=== PATIENT | male | born 1970 | race Two or more races ===

== ENCOUNTER 2016-10-19 08:34 | Inpatient (IN) | payer MEDICAID ==
[~2016-10-19] VITALS: Ht 177.8 cm; Wt 90.7 kg
[~2016-10-19 08:34] MED LIST: COLACE100 MG ORAL; DILANTIN100 MG PO; IBUPROFEN600 MG ORAL; KEFLEX500 MG ORAL; LIBRIUM25 MG ORAL; NKM; PROTONIX40 MG ORAL; SILVADENE CREAM50 GM TOP; UNOBMED
[2016-10-19 08:40] VITALS: BP_SYST 135; BP_SYST 139; BP_DIAS 105; BP_DIAS 84
[2016-10-19] MEDS ORDERED: LORazepam Inj 2mg/ml 1ml ONE (08:55)
[2016-10-19] MEDS ORDERED: LORazepam Inj 2mg/ml 1ml IV ONE (09:00)
[2016-10-19 09:36] LABS: ACETAMINOPHEN < 10 ug/mL (10-30); ALANINE AMINOTRANSFERASE 106 U/L (3-41); ALBUMIN/GLOBULIN RATIO 1.3 (1.0-2.7); ALCOHOL < 10 mg/dL; ANION GAP 31 (5-15); ASPARTATE AMINO TRANSFERASE 263 U/L (5-40); CALCIUM 9.1 mg/dL (8.6-10.2); CARBON DIOXIDE 12 mEQ/L (20-30); CHLORIDE 97 mEQ/L (98-107); GLOMERULAR FILTRATION RATE > 60 mL/min (>60); HEMOLYSIS 12; POTASSIUM 3.5 mEQ/L (3.4-4.9); SODIUM 140 mEQ/L (135-145); VALPROIC ACID < 3 ug/mL (50-100)
[2016-10-19 09:40] LABS: BASOPHILS % (AUTO) 1.2 % (0.0-2.0); EOSINOPHILS % (AUTO) 0.9 % (0.0-3.0); LYMPHOCYTES % (AUTO) 27.3 % (20.0-45.0); MEAN CORPUSCULAR HEMOGLOBIN 31.2 PG (27.0-31.0); MEAN CORPUSCULAR HGB CONC 32.1 G/DL (32.0-36.0); MEAN CORPUSCULAR VOLUME 97 FL (80-99); MEAN PLATELET VOLUME 7.1 FL (6.5-10.1); MONOCYTES % (AUTO) 6.8 % (1.0-10.0); NEUTROPHILS % (AUTO) 63.8 % (45.0-75.0); PLATELET COUNT 108 K/UL (150-450); RED BLOOD COUNT 4.81 M/UL (4.70-6.10); RED CELL DISTRIBUTION WIDTH 12.7 % (11.6-14.8); WHITE BLOOD COUNT 5.1 K/UL (4.8-10.8)
--- NOTE | 2016-10-19 09:44 | Emergency Room Report ---
History of Present Illness General Chief Complaint: Seizure Source: Patient, EMS Present Illness HPI 46YOM [address]IB[address]S from [address] after witnessed seizure. Not given meds by EMS. Patient denies history of epilepsy Daily ETOH Last drink was yesterday Has bottle of keflex with him Old laceration with suture to left forehead Allergies: Coded Allergies: No Known Allergies (Unverified , 07/08/12) UNABLE TO ASSESS (Unverified , 08/02/13) POOR HISOTRIAN Patient History Past Medical History: none Past Surgical History: none Pertinent Family History: none Social History: Reports: alcohol use Nursing Documentation-[facility] Past Medical History: No Stated History Hx Seizures: Yes Review of Systems All Other Systems: negative except mentioned in HPI Physical Exam Vital Signs Date Time Temp Pulse Resp B/P Pulse Ox O2 Delivery O2 Flow Rate FiO2 10/19/16 08:32 97.9 104 18 144/82 96 Room Air Sp02 EP Interpretation: reviewed, normal General Appearance: normal inspection, well appearing, no apparent distress, alert, GCS 15, non-toxic, other - Disheveled, dirty Head: normocephalic, other - Multiple old abrasions, hematoma to head. Small lac to left forehead with suture in place Eyes: bilateral eye EOMI, bilateral eye PERRL ENT: normal ENT inspection, hearing grossly normal, normal voice Neck: normal inspection, full range of motion, supple, no bony tend Respiratory: normal inspection, lungs clear, normal breath sounds, no respiratory distress, no retraction, no wheezing Cardiovascular #1: regular rate, rhythm, no edema Gastrointestinal: normal inspection, normal bowel sounds, non tender, soft, no guarding, no hernia Genitourinary: no CVA tenderness Musculoskeletal: normal inspection, back normal, normal range of motion, April' s Sign negative Neurologic: normal inspection, alert, oriented x3, responsive, 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 Afebrile Mild tremors, fasciculations CT head: no acute trauma. Atrophy Labs: H&H stable. No major metabolic derangement. ETOH level 0. UTox negative ECG is NSR. No ischemia Was given IV ativan for withdrawal symptoms but no additional seizures in ED Endorsed to Dr Vaca for tele admit at 953am EKG Diagnostic Results Rate: normal Rhythm: NSR ST Segments: no acute changes ASA given to the pt in ED: No Rhythm Strip Diag. Results EP Interpretation: yes Rate: 75 Rhythm: NSR, no PVC's, no ectopy Last Vital Signs Date Time Temp Pulse Resp B/P Pulse Ox O2 Delivery O2 Flow Rate FiO2 10/19/16 08:40 84 19 Room Air 10/19/16 08:40 98.1 135/105 93 Status: improved Disposition: ADMITTED INPATIENT Condition: Serious Referrals: NOT CHOSEN JACKIE/,REFERRING (PCP) RADHA MCCONNELL M.D. Oct 19, 2016 09:43
[2016-10-19 10:30] VITALS: BP 152/86
[2016-10-19] MEDS ORDERED: Milk of Magnesia 30ml Ud ORAL PRN (12:00)
[2016-10-19] MEDS ORDERED: Acetaminophen 650 MG SUPP RECTAL PRN ×2 (12:00)
[2016-10-19 12:05] VITALS: BP 162/96
[2016-10-19] MEDS ORDERED: Thiamine HCl 100 MG, Folic Acid 1 MG, Magnesium Sulfate 2,000 MG, Multivitamin - 12 Inj... IV SCH ×5 (14:00)
[2016-10-19] MEDS: LORazepam Inj 2mg/ml 1ml IV SCH ×3 (14:04→23:43)
[2016-10-19 16:00] VITALS: BP 148/100
[2016-10-19] MEDS: D5NS w/KCl 40mEq 1000ml 1,000 ML IV SCH ×2 (16:45→23:42)
[2016-10-19] MEDS ORDERED: NS 275ml ONE (17:12)
[2016-10-19] MEDS ORDERED: Tubing IV Secondary IV ONE (17:12)
[2016-10-19 20:00] VITALS: BP 152/94
[2016-10-19] MEDS: Heparin 5000 units/ml inj SUBQ SCH (21:00)
--- NOTE | 2016-10-19 23:02 | History and Physical Report ---
DATE OF ADMISSION: 10/19/2016 CHIEF COMPLAINT AND REASON FOR HOSPITALIZATION: The patient presents with seizures and alcohol withdrawal. HISTORY OF PRESENT ILLNESS: The patient is a poor historian, came with apparently witnessed seizure and was very tremulous, admits to alcoholism and is in alcohol withdrawal syndrome. He is a poor historian. PAST MEDICAL HISTORY: He has had seizures apparently in the past and head injuries in the past. PAST SURGICAL HISTORY: There is surgery on the right leg apparently for fracture and there are scalp incisions. It is not clear if he had intracerebral bleeding or just scalp injury. HABITS: He is a heavy alcohol user. He smokes intermittently. Denies drugs. SYSTEM REVIEW: Other than the above, negative, but the patient is an inaccurate historian. PHYSICAL EXAMINATION: GENERAL: The patient is seen in the emergency room. He is lying in bed, alert, very tremulous, but responsive. VITAL SIGNS: Temperature 98.1, respirations 19, pulse 84, blood pressure 139/84, and pulse oximetry 99%. HEAD, EYES, EARS, NOSE, AND THROAT: Oral mucosa is moist. Ocular motions are intact in all directions. Sclerae nonicteric. NECK: No adenopathy. LUNGS: Clear. HEART: Regular rhythm. No murmur. ABDOMEN: Soft. I am unable to feel liver or spleen. EXTREMITIES: No edema, cyanosis, or clubbing. NEUROLOGIC: He is alert and responsive and answers a few simple questions. He is very irritable and very, very tremulous and cannot hold still. Ocular motions intact in all directions. Smile is symmetric. Tongue is midline. He moves all extremities equally. LABORATORY DATA: Reviewed on the computer. IMPRESSION: 1. Alcohol withdrawal syndrome with alcohol withdrawal seizures. 2. Elevated liver enzymes consistent with alcoholic hepatitis. 3. Alcohol level 0 consistent with stopping alcohol recently. PLAN: The patient will be put on treatment for alcohol withdrawal syndrome, GI prophylaxis. He will need social service to assess discharge planning after he stabilizes. Dio Vaca M.D. DR: RANJIT JOB#: [id number] CC:
[2016-10-20 00:18] VITALS: BP 139/82
[2016-10-20 04:14] VITALS: BP 140/79
[2016-10-20] MEDS: LORazepam Inj 2mg/ml 1ml IV SCH (05:47)
[2016-10-20 07:53] VITALS: BP 139/94
[2016-10-20] MEDS: Heparin 5000 units/ml inj SUBQ SCH ×2 (08:41→21:00)
[2016-10-20] MEDS: D5NS w/KCl 40mEq 1000ml 1,000 ML IV SCH ×3 (08:50→18:54)
--- NOTE | 2016-10-20 10:31 | General Progress Note ---
Assessment/Plan Problem List: (1) Seizure disorder ICD Codes: G40.909 - Epilepsy, unspecified, not intractable,without status epilepticus SNOMED: 726820863 (2) Alcohol abuse ICD Codes: F10.10 - Alcohol abuse, uncomplicated SNOMED: 32960028 (3) Alcohol withdrawal seizure ICD Codes: F10.239 - Alcohol dependence with withdrawal, unspecified; R56.9 - Unspecified convulsions SNOMED: 795866564 Qualifiers: Qualified Codes: F10.230 - Alcohol dependence with withdrawal, uncomplicated Assessment/Plan taper ativan, mobilize Subjective Constitutional: Reports: weakness HEENT: Reports: no symptoms Cardiovascular: Reports: no symptoms Respiratory: Reports: no symptoms Gastrointestinal/Abdominal: Reports: no symptoms Genitourinary: Reports: no symptoms Neurologic/Psychiatric: Reports: pre-existing deficit Allergies: Coded Allergies: No Known Allergies (Unverified , 07/08/12) UNABLE TO ASSESS (Unverified , 08/02/13) POOR HISOTRIAN Objective Last 24 Hour Vital Signs Date Time Temp Pulse Resp B/P Pulse Ox O2 Delivery O2 Flow Rate FiO2 10/20/16 07:53 97.6 89 20 139/94 94 Room Air 10/20/16 04:14 98.5 70 19 140/79 96 Room Air 10/20/16 00:18 98.2 68 18 139/82 96 Room Air 10/19/16 20:00 99.0 87 18 152/94 96 Room Air 10/19/16 16:00 98.5 90 16 148/100 95 Room Air 10/19/16 12:05 97.9 78 20 162/96 96 Room Air 10/19/16 11:50 68 21 136/75 97 Room Air Intake and Output 10/19/16 10/20/16 18:59 06:59 Intake Total 480 ml 2215.2 ml Output Total 2200 ml Balance 480 ml 15.2 ml Intake Oral 480 ml IV Total 2215.2 ml Output Urine Total 2200 ml # Voids 3 7 Height (Feet): 5 Height (Inches): 10.00 Weight (Pounds): 200 General Appearance: no apparent distress, alert EENT: normal ENT inspection Neck: non-tender Cardiovascular: regular rhythm Respiratory/Chest: lungs clear Abdomen: non tender Edema: no edema noted Arm (L), no edema noted Arm (R), no edema noted Leg (L), no edema noted Leg (R), no edema noted Pedal (L), no edema noted Pedal (R), no edema noted Generalized Neurologic: other - mild tremor MORENITA COLMENARES Oct 20, 2016 10:31
[2016-10-20 11:24] VITALS: BP 137/94
[2016-10-20] MEDS: LORazepam 0.5mg tab ORAL SCH ×2 (12:08→18:00)
[2016-10-20] MEDS: LORazepam Inj 2mg/ml 1ml IV PRN ×3 (13:51→23:24)
[2016-10-20 15:20] VITALS: BP 133/69
[2016-10-20] MEDS ORDERED: LORazepam Inj 2mg/ml 1ml IV ONE ×2 (16:10→18:50)
[2016-10-20] MEDS: Thiamine 100mg in D5W 55ml IVPB SCH (17:24)
--- NOTE | 2016-10-20 17:52 | Cardiology Report ---
APPROVED REPORT EKG Measurement Heart [id number] Normal sinus rhythm Normal ECG
[2016-10-20] MEDS: Folic Acid 1 MG, Magnesium Sulfate 2,000 MG, Multivitamin - 12 Injection 10 ML in NS w/... IV SCH (18:23)
[2016-10-20] MEDS ORDERED: Haloperidol 5mg/ml Inj IM ONE (19:25)
[2016-10-20 20:00] VITALS: BP 120/78
[2016-10-21] VITALS: BP 145/93
[2016-10-21] MEDS: LORazepam Inj 2mg/ml 1ml IV PRN ×2 (03:53→16:26)
[2016-10-21 04:00] VITALS: BP 140/91
[2016-10-21] MEDS: D5NS w/KCl 40mEq 1000ml 1,000 ML IV SCH (05:01)
[2016-10-21 07:06] LABS: MEAN CORPUSCULAR HEMOGLOBIN 32.7 PG (27.0-31.0); MEAN CORPUSCULAR HGB CONC 34.5 G/DL (32.0-36.0); MEAN CORPUSCULAR VOLUME 95 FL (80-99); MEAN PLATELET VOLUME 9.2 FL (6.5-10.1); PLATELET COUNT 126 K/UL (150-450); RED BLOOD COUNT 4.77 M/UL (4.70-6.10); RED CELL DISTRIBUTION WIDTH 11.9 % (11.6-14.8); WHITE BLOOD COUNT 7.6 K/UL (4.8-10.8)
[2016-10-21 07:13] LABS: AMMONIA 35 umol/L (16-60)
[2016-10-21 07:14] LABS: ALANINE AMINOTRANSFERASE 88 U/L (3-41); ALBUMIN/GLOBULIN RATIO 1.3 (1.0-2.7); ANION GAP 14 (5-15); ASPARTATE AMINO TRANSFERASE 136 U/L (5-40); CALCIUM 9.6 mg/dL (8.6-10.2); CARBON DIOXIDE 23 mEQ/L (20-30); CHLORIDE 106 mEQ/L (98-107); CREATININE 0.9 mg/dL (0.7-1.2); GLOMERULAR FILTRATION RATE > 60 mL/min (>60); HEMOLYSIS 13; MAGNESIUM 2.7 mg/dL (1.7-2.5); POTASSIUM 3.9 mEQ/L (3.4-4.9); SODIUM 143 mEQ/L (135-145); TOTAL PROTEIN 8.2 g/dL (6.6-8.7)
[2016-10-21 07:30] LABS: BILIRUBIN,DIRECT 0.2 mg/dL (0.1-0.3)
[2016-10-21 07:46] VITALS: BP 142/89
[2016-10-21] MEDS: LORazepam 0.5mg tab ORAL SCH ×3 (08:27→21:28)
--- NOTE | 2016-10-21 08:29 | Diagnostic Imaging Report ---
Indication: Altered mental status Technique: Contiguous 5 mm thick transaxial imaging of the head obtained in a Siemens Sensation [address] scanner. Soft tissue and bone windows generated. Total Dose length Product (DLP): [address] Dose Index Volume (CTDIvol): 70.38 mGy Comparison: January 10, 2016 Findings: There is mild prominence of the ventricles, basal cisterns, and cerebral sulci consistent with atrophy. Mild, nonspecific, white matter hypoattenuation is noted throughout the brain consistent with chronic small vessel disease. There is no midline shift, edema, acute hemorrhage, mass effect, or abnormal extra-axial fluid collections. Bones and extra osseous soft tissues are unremarkable. Mucosal thickening noted in the paranasal sinuses. Mild scalp swelling over the right vertex. Impression: No acute intracranial bleed, mass effect or edema. Mild atrophy of the brain. Nonspecific white matter hypoattenuation probably due to chronic small vessel disease. Sinusitis The CT scanner at [facility] is accredited by the [employer] and the scans are performed using dose optimization techniques as appropriate to a performed exam including Automatic Exposure control.
[2016-10-21] MEDS: Heparin 5000 units/ml inj SUBQ SCH ×2 (08:31→21:00)
[2016-10-21 09:39] LABS: LYMPHOCYTES % (MANUAL) 9 % (20-45); NEUTROPHILS % (MANUAL) 89 % (45-75); PLATELET MORPHOLOGY NORMAL; TOTAL CELLS COUNTED 100
[2016-10-21 09:40] LABS: BAND NEUTROPHILS % (MANUAL) 0 % (0-8); BASOPHILS % (MANUAL) 0 % (0-2); EOSINOPHILS % (MANUAL) 0 % (0-3); PLATELET ESTIMATE DECREASED
[2016-10-21 11:55] VITALS: BP 140/91
--- NOTE | 2016-10-21 14:26 | General Progress Note ---
Assessment/Plan Problem List: (1) Seizure disorder ICD Codes: G40.909 - Epilepsy, unspecified, not intractable,without status epilepticus SNOMED: 793434533 (2) Alcohol abuse ICD Codes: F10.10 - Alcohol abuse, uncomplicated SNOMED: 22846719 (3) Alcohol withdrawal seizure ICD Codes: F10.239 - Alcohol dependence with withdrawal, unspecified; R56.9 - Unspecified convulsions SNOMED: 249009024 Qualifiers: Qualified Codes: F10.230 - Alcohol dependence with withdrawal, uncomplicated Assessment/Plan ativan, haldol, sitter mobilize Subjective ROS Limited/Unobtainable: Yes Allergies: Coded Allergies: No Known Allergies (Unverified , 07/08/12) UNABLE TO ASSESS (Unverified , 08/02/13) POOR HISOTRIAN Objective Last 24 Hour Vital Signs Date Time Temp Pulse Resp B/P Pulse Ox O2 Delivery O2 Flow Rate FiO2 10/21/16 11:55 97.7 100 23 140/91 99 Room Air 10/21/16 07:46 98.7 103 22 142/89 97 Room Air 10/21/16 04:00 99.0 133 20 140/91 95 Room Air 10/21/16 00:00 98.4 131 20 145/93 96 Room Air 10/20/16 20:00 98.6 125 21 120/78 95 Room Air 10/20/16 15:20 97.3 76 20 133/69 95 Room Air Intake and Output 10/20/16 10/21/16 19:00 07:00 Intake Total 1180 ml 1690 ml Output Total 700 ml 600 ml Balance 480 ml 1090 ml Intake Oral 1180 ml 240 ml IV Total 1450 ml Output Urine Total 700 ml 600 ml # Voids 4 1 # Bowel Movements 1 Laboratory Tests 10/21/16 05:15: White Blood Count 7.6, Red Blood Count 4.77, Hemoglobin 15.6, Hematocrit 45.3, Mean Corpuscular Volume 95, Mean Corpuscular Hemoglobin 32.7H, Mean Corpuscular Hemoglobin Concent 34.5, Red Cell Distribution Width 11.9, Platelet Count 126L, Mean Platelet Volume 9.2, Neutrophils (%) (Auto) , Lymphocytes (%) (Auto) , Monocytes (%) (Auto) , Eosinophils (%) (Auto) , Basophils (%) (Auto) , Differential Total Cells Counted 100, Neutrophils % (Manual) 89H, Lymphocytes % (Manual) 9L, Monocytes % (Manual) 2, Eosinophils % (Manual) 0, Basophils % ( Manual) 0, Band Neutrophils 0, Platelet Estimate DecreasedL, Platelet Morphology Normal, Prothrombin Time 10.0, Prothromb Time International Ratio 1.0 , Sodium Level 143, Potassium Level 3.9, Chloride Level 106, Carbon Dioxide Level 23, Anion Gap 14, Blood Urea Nitrogen 11, Creatinine 0.9, Estimat Glomerular Filtration Rate > 60, Glucose Level 152H, Calcium Level 9.6, Phosphorus Level 1.0L, Magnesium Level 2.7H, Total Bilirubin 1.1, Direct Bilirubin 0.2, Aspartate Amino Transf (AST/SGOT) 136H, Alanine Aminotransferase (ALT/SGPT) 88H, Alkaline Phosphatase 73, Ammonia 35, Total Protein 8.2, Albumin 4.7, Globulin 3.5, Albumin/Globulin Ratio 1.3 Height (Feet): 5 Height (Inches): 10.00 Weight (Pounds): 200 General Appearance: other - agitated restrained EENT: normal ENT inspection Neck: normal alignment Cardiovascular: normal rate, regular rhythm Respiratory/Chest: lungs clear Abdomen: no organomegaly Neurologic: disoriented, other - agitated tremor MORENITA COLMENARES Oct 21, 2016 14:26
[2016-10-21 15:46] VITALS: BP 138/76
[2016-10-21] MEDS: Potassium Phosphate 20 MEQ in D5NS 1,000 ML IV SCH ×2 (16:12→22:11)
[2016-10-21] MEDS: Folic Acid 1 MG, Magnesium Sulfate 2,000 MG, Multivitamin - 12 Injection 10 ML in NS w/... IV SCH (17:57)
[2016-10-21] MEDS: Thiamine 100mg in D5W 55ml IVPB SCH (18:00)
[2016-10-21 20:00] VITALS: BP 166/97
[2016-10-22] VITALS: BP 130/94
[2016-10-22] MEDS: LORazepam Inj 2mg/ml 1ml IV PRN ×3 (00:07→16:09)
[2016-10-22 04:00] VITALS: BP 151/99
[2016-10-22] MEDS: Potassium Phosphate 20 MEQ in D5NS 1,000 ML IV SCH (05:53)
[2016-10-22 07:32] LABS: ALANINE AMINOTRANSFERASE 172 U/L (3-41); ALBUMIN/GLOBULIN RATIO 1.5 (1.0-2.7); ANION GAP 18 (5-15); ASPARTATE AMINO TRANSFERASE 519 U/L (5-40); CALCIUM 9.1 mg/dL (8.6-10.2); CARBON DIOXIDE 20 mEQ/L (20-30); CHLORIDE 117 mEQ/L (98-107); CREATININE 1.1 mg/dL (0.7-1.2); GLOMERULAR FILTRATION RATE > 60 mL/min (>60); HEMOLYSIS 7; PHOSPHORUS 2.9 mg/dL (2.5-4.8); POTASSIUM 4.1 mEQ/L (3.4-4.9); SODIUM 155 mEQ/L (135-145); TOTAL PROTEIN 7.9 g/dL (6.6-8.7)
[2016-10-22 07:59] LABS: BILIRUBIN,DIRECT 0.3 mg/dL (0.1-0.3)
[2016-10-22 08:13] LABS: AMMONIA 47 umol/L (16-60)
[2016-10-22 08:51] VITALS: BP 149/56
[2016-10-22] MEDS: Heparin 5000 units/ml inj SUBQ SCH ×2 (09:00→20:38)
[2016-10-22] MEDS: LORazepam 0.5mg tab ORAL SCH ×4 (10:03→20:45)
[2016-10-22 11:13] VITALS: BP 153/92
[2016-10-22 16:00] VITALS: BP 155/92
[2016-10-22] MEDS: D5 1/4NS w/KCl 20mEq 1,000 ML IV SCH ×2 (16:03→20:00)
[2016-10-22] MEDS: Piperacillin/Tazobactam 3.375 GM in NS 110 ML IVPB SCH ×2 (16:03→22:10)
[2016-10-22 17:06] LABS: APPEARANCE,URINE SLIGHTLY CLOUDY; KETONES,URINE 2+ (NEGATIVE); LEUKOCYTE ESTERASE ,URINE 1+ (NEGATIVE); NITRITE,URINE NEGATIVE (NEGATIVE); PH,URINE 5 (4.5-8.0); PROTEIN,URINE 4+ (NEGATIVE); UROBILINOGEN,URINE 4 MG/DL (0.0-1.0)
[2016-10-22 17:08] LABS: ICTOTEST POSITIVE
[2016-10-22 17:28] LABS: AMORPHOUS SEDIMENT,UR MANY /LPF; BACTERIA,URINE FEW /HPF; WBC,URINE 0-2 /HPF (0 - 0)
[2016-10-22] MEDS: Thiamine 100mg in D5W 55ml IVPB SCH (17:41)
[2016-10-22] MEDS: Folic Acid 1 MG, Magnesium Sulfate 2,000 MG, Multivitamin - 12 Injection 10 ML in NS w/... IV SCH (17:41)
[2016-10-22 20:00] VITALS: BP 168/109
--- NOTE | 2016-10-22 20:48 | General Progress Note ---
Assessment/Plan Problem List: (1) Seizure disorder ICD Codes: G40.909 - Epilepsy, unspecified, not intractable,without status epilepticus SNOMED: 335219854 (2) Alcohol abuse ICD Codes: F10.10 - Alcohol abuse, uncomplicated SNOMED: 39703259 (3) Alcohol withdrawal seizure ICD Codes: F10.239 - Alcohol dependence with withdrawal, unspecified; R56.9 - Unspecified convulsions SNOMED: 083659229 Qualifiers: Qualified Codes: F10.230 - Alcohol dependence with withdrawal, uncomplicated (4) Fever ICD Codes: R50.9 - Fever, unspecified SNOMED: 755663855 (5) Rhabdomyolysis ICD Codes: M62.82 - Rhabdomyolysis SNOMED: 231426241 Assessment/Plan ativan, haldol-stop as rhabdo, , sitter, iv adjusted , start zosyn after cultures Subjective ROS Limited/Unobtainable: Yes Allergies: Coded Allergies: No Known Allergies (Unverified , 07/08/12) UNABLE TO ASSESS (Unverified , 08/02/13) POOR HISOTRIAN Objective Last 24 Hour Vital Signs Date Time Temp Pulse Resp B/P Pulse Ox O2 Delivery O2 Flow Rate FiO2 10/22/16 20:00 101.8 121 22 168/109 95 Room Air 2.0 99 10/22/16 18:10 97.5 10/22/16 16:00 97.7 75 22 155/92 95 Room Air 10/22/16 11:13 97.7 72 22 153/92 90 Room Air 10/22/16 09:56 100.2 10/22/16 08:51 102.4 135 22 149/56 93 Room Air 10/22/16 04:00 102.4 125 21 151/99 100 Room Air 10/22/16 00:00 103.0 128 19 130/94 100 10/21/16 22:27 100.2 Intake and Output 10/21/16 10/22/16 19:00 07:00 Intake Total 1060 ml 2019.2 ml Balance 1060 ml 2019.2 ml Intake Oral 660 ml IV Total 400 ml 2019.2 ml # Voids 3 3 Laboratory Tests 10/22/16 06:55: Sodium Level 155H, Potassium Level 4.1, Chloride Level 117H, Carbon Dioxide Level 20, Anion Gap 18H, Blood Urea Nitrogen 17, Creatinine 1.1, Estimat Glomerular Filtration Rate > 60, Glucose Level 150H, Calcium Level 9.1, Phosphorus Level 2.9, Total Bilirubin 1.2, Direct Bilirubin 0.3, Aspartate Amino Transf (AST/SGOT) 519H, Alanine Aminotransferase (ALT/SGPT) 172H, Alkaline Phosphatase 68, Ammonia 47, Total Creatine Kinase 39603U, Total Protein 7.9, Albumin 4.8, Globulin 3.1, Albumin/Globulin Ratio 1.5 10/22/16 16:30: Urine Color Brown, Urine Appearance Slightly cloudy, Urine pH 5, Urine Specific [place] 1.025, Urine Protein 4+H, Urine Glucose (UA) Negative, Urine Ketones 2+H , Urine Occult Blood 5+H, Urine Nitrite Negative, Urine Bilirubin 1+H, Urine Ictotest Positive, Urine Urobilinogen 4H, Urine Leukocyte Esterase 1+H, Urine RBC 5-10H, Urine WBC 0-2, Urine Squamous Epithelial Cells None, Urine Amorphous Sediment ManyH, Urine Bacteria Few, Urine Granular Casts 5-10H Height (Feet): 5 Height (Inches): 10.00 Weight (Pounds): 200 General Appearance: confused, agitated EENT: normal ENT inspection, other - scas on scalp Neck: normal alignment Cardiovascular: regular rhythm Respiratory/Chest: lungs clear Abdomen: non tender Extremities: no calf tenderness Edema: no edema noted Arm (L), no edema noted Arm (R), no edema noted Leg (L), no edema noted Leg (R), no edema noted Pedal (L), no edema noted Pedal (R), no edema noted Generalized Neurologic: disoriented, other - tremulous MORENITA COLMENARES Oct 22, 2016 20:48
[2016-10-22] MEDS ORDERED: Folic Acid 1 MG, Magnesium Sulfate 2,000 MG, Multivitamin - 12 Injection 10 ML in NS w/... IV SCH (22:30)
[2016-10-23] VITALS: BP 147/95
[2016-10-23] MEDS: D5 1/4NS w/KCl 20mEq 1,000 ML IV SCH ×4 (01:28→16:00)
[2016-10-23] MEDS: LORazepam Inj 2mg/ml 1ml IV PRN (02:46)
[2016-10-23 04:00] VITALS: BP 151/103
[2016-10-23] MEDS: Piperacillin/Tazobactam 3.375 GM in NS 110 ML IVPB SCH ×3 (05:05→21:49)
[2016-10-23 07:09] LABS: BASOPHILS % (AUTO) 1.8 % (0.0-2.0); EOSINOPHILS % (AUTO) 0.3 % (0.0-3.0); LYMPHOCYTES % (AUTO) 9.6 % (20.0-45.0); MEAN CORPUSCULAR HEMOGLOBIN 31.7 PG (27.0-31.0); MEAN CORPUSCULAR HGB CONC 32.8 G/DL (32.0-36.0); MEAN CORPUSCULAR VOLUME 97 FL (80-99); MEAN PLATELET VOLUME 8.4 FL (6.5-10.1); MONOCYTES % (AUTO) 13.9 % (1.0-10.0); NEUTROPHILS % (AUTO) 74.3 % (45.0-75.0); PLATELET COUNT 109 K/UL (150-450); RED BLOOD COUNT 4.44 M/UL (4.70-6.10); RED CELL DISTRIBUTION WIDTH 12.4 % (11.6-14.8); WHITE BLOOD COUNT 6.8 K/UL (4.8-10.8)
[2016-10-23 07:22] LABS: ALANINE AMINOTRANSFERASE 231 U/L (3-41); ALBUMIN/GLOBULIN RATIO 1.4 (1.0-2.7); ANION GAP 13 (5-15); CALCIUM 8.3 mg/dL (8.6-10.2); CARBON DIOXIDE 23 mEQ/L (20-30); CHLORIDE 114 mEQ/L (98-107); CREATININE 0.8 mg/dL (0.7-1.2); GLOMERULAR FILTRATION RATE > 60 mL/min (>60); HEMOLYSIS 2; POTASSIUM 3.4 mEQ/L (3.4-4.9); SODIUM 150 mEQ/L (135-145); TOTAL PROTEIN 6.9 g/dL (6.6-8.7)
[2016-10-23 07:26] LABS: MAGNESIUM 2.8 mg/dL (1.7-2.5); PHOSPHORUS 4.6 mg/dL (2.5-4.8)
[2016-10-23 07:50] LABS: BILIRUBIN,DIRECT 0.2 mg/dL (0.1-0.3)
[2016-10-23 07:53] VITALS: BP 144/91
[2016-10-23 08:01] LABS: ASPARTATE AMINO TRANSFERASE 930 U/L (5-40)
[2016-10-23] MEDS: Heparin 5000 units/ml inj SUBQ SCH ×2 (08:22→21:00)
[2016-10-23] MEDS: LORazepam 0.5mg tab ORAL SCH ×4 (08:22→21:00)
--- NOTE | 2016-10-23 09:43 | Diagnostic Imaging Report ---
Indication: COUGH, high fever Technique: One view of the chest Comparison: none Findings: Lungs and pleural spaces are clear. Heart size is normal. Impression: No acute process
[2016-10-23 11:26] VITALS: BP 138/87
[2016-10-23 16:00] VITALS: BP 143/92
--- NOTE | 2016-10-23 17:43 | General Progress Note ---
Assessment/Plan Problem List: (1) Seizure disorder ICD Codes: G40.909 - Epilepsy, unspecified, not intractable,without status epilepticus SNOMED: 008769217 (2) Alcohol abuse ICD Codes: F10.10 - Alcohol abuse, uncomplicated SNOMED: 99859150 (3) Alcohol withdrawal seizure ICD Codes: F10.239 - Alcohol dependence with withdrawal, unspecified; R56.9 - Unspecified convulsions SNOMED: 710004303 Qualifiers: Qualified Codes: F10.230 - Alcohol dependence with withdrawal, uncomplicated (4) Fever ICD Codes: R50.9 - Fever, unspecified SNOMED: 893407130 (5) Rhabdomyolysis ICD Codes: M62.82 - Rhabdomyolysis SNOMED: 095983680 Assessment/Plan ativan, haldol-stop as rhabdo, , sitter, iv adjusted , start zosyn after cultures, fever may be from rhabdo or alchoholic liver, less tremulous Subjective Constitutional: Reports: weakness HEENT: Reports: no symptoms Cardiovascular: Reports: no symptoms Genitourinary: Reports: incontinence Neurologic/Psychiatric: Reports: tremors Endocrine: Reports: no symptoms Hematologic/Lymphatic: Reports: no symptoms Allergies: Coded Allergies: No Known Allergies (Unverified , 07/08/12) UNABLE TO ASSESS (Unverified , 08/02/13) POOR HISOTRIAN Objective Last 24 Hour Vital Signs Date Time Temp Pulse Resp B/P Pulse Ox O2 Delivery O2 Flow Rate FiO2 10/23/16 16:00 97.4 77 18 143/92 97 Room Air 10/23/16 11:26 97.7 78 18 138/87 100 Room Air 10/23/16 07:53 97.6 78 28 144/91 98 Room Air 10/23/16 04:00 97.4 107 22 151/103 95 Room Air 2.0 99 10/23/16 00:00 97.8 100 20 147/95 96 Room Air 10/22/16 20:00 101.8 121 22 168/109 95 Room Air 2.0 99 10/22/16 18:10 97.5 Intake and Output 10/22/16 10/23/16 19:00 07:00 Intake Total 200 ml 1937.5 ml Balance 200 ml 1937.5 ml Intake Oral 600 ml IV Total 200 ml 1337.5 ml # Voids 5 2 # Bowel Movements 2 Laboratory Tests 8/16/17 04:45: White Blood Count 6.8, Red Blood Count 4.44L, Hemoglobin 14.1L, Hematocrit 43.0 , Mean Corpuscular Volume 97, Mean Corpuscular Hemoglobin 31.7H, Mean Corpuscular Hemoglobin Concent 32.8, Red Cell Distribution Width 12.4, Platelet Count 109L, Mean Platelet Volume 8.4, Neutrophils (%) (Auto) 74.3, Lymphocytes ( %) (Auto) 9.6L, Monocytes (%) (Auto) 13.9H, Eosinophils (%) (Auto) 0.3, Basophils (%) (Auto) 1.8, Sodium Level 150H, Potassium Level 3.4, Chloride Level 114H, Carbon Dioxide Level 23, Anion Gap 13, Blood Urea Nitrogen 11, Creatinine 0.8, Estimat Glomerular Filtration Rate > 60, Glucose Level 130H, Calcium Level 8.3L, Phosphorus Level 4.6, Magnesium Level 2.8H, Total Bilirubin 1.2, Direct Bilirubin 0.2, Aspartate Amino Transf (AST/SGOT) 930H, Alanine Aminotransferase (ALT/SGPT) 231H, Alkaline Phosphatase 58, Total Creatine Kinase > 96281B, Total Protein 6.9, Albumin 4.1, Globulin 2.8, Albumin/Globulin Ratio 1.4 Height (Feet): 5 Height (Inches): 10.00 Weight (Pounds): 200 General Appearance: confused EENT: normal ENT inspection Neck: normal alignment, supple Cardiovascular: regular rhythm Abdomen: soft, no organomegaly Edema: no edema noted Arm (L), no edema noted Arm (R), no edema noted Leg (L), no edema noted Leg (R), no edema noted Pedal (L), no edema noted Pedal (R), no edema noted 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
[2016-10-23] MEDS: Thiamine 100mg in D5W 55ml IVPB SCH (18:32)
[2016-10-23] MEDS: Folic Acid 1 MG, Magnesium Sulfate 2,000 MG, Multivitamin - 12 Injection 10 ML in NS w/... IV SCH (18:32)
[2016-10-23 20:00] VITALS: BP 140/89
[2016-10-24 00:04] VITALS: BP 138/91
[2016-10-24] MEDS: D5 1/4NS w/KCl 20mEq 1,000 ML IV SCH ×4 (01:45→22:29)
[2016-10-24 04:00] VITALS: BP 137/85
[2016-10-24] MEDS: Piperacillin/Tazobactam 3.375 GM in NS 110 ML IVPB SCH ×3 (05:26→22:29)
[2016-10-24 07:15] LABS: BASOPHILS % (AUTO) 0.6 % (0.0-2.0); EOSINOPHILS % (AUTO) 3.1 % (0.0-3.0); LYMPHOCYTES % (AUTO) 13.3 % (20.0-45.0); MEAN CORPUSCULAR HEMOGLOBIN 32.1 PG (27.0-31.0); MEAN CORPUSCULAR HGB CONC 33.7 G/DL (32.0-36.0); MEAN CORPUSCULAR VOLUME 95 FL (80-99); MEAN PLATELET VOLUME 10.3 FL (6.5-10.1); MONOCYTES % (AUTO) 14.5 % (1.0-10.0); NEUTROPHILS % (AUTO) 68.6 % (45.0-75.0); PLATELET COUNT 111 K/UL (150-450); RED BLOOD COUNT 4.34 M/UL (4.70-6.10); RED CELL DISTRIBUTION WIDTH 11.8 % (11.6-14.8); WHITE BLOOD COUNT 4.6 K/UL (4.8-10.8)
[2016-10-24 07:28] LABS: CKMB 47.8 ng/mL (< 6.7)
[2016-10-24 07:31] LABS: ALANINE AMINOTRANSFERASE 257 U/L (3-41); ALBUMIN/GLOBULIN RATIO 1.2 (1.0-2.7); ANION GAP 10 (5-15); CALCIUM 7.9 mg/dL (8.6-10.2); CARBON DIOXIDE 25 mEQ/L (20-30); CHLORIDE 105 mEQ/L (98-107); CREATININE 0.6 mg/dL (0.7-1.2); GLOMERULAR FILTRATION RATE > 60 mL/min (>60); HEMOLYSIS 9; POTASSIUM 3.5 mEQ/L (3.4-4.9); SODIUM 140 mEQ/L (135-145); TOTAL PROTEIN 6.2 g/dL (6.6-8.7)
[2016-10-24 07:54] LABS: ASPARTATE AMINO TRANSFERASE 915 U/L (5-40)
[2016-10-24 08:00] VITALS: BP 143/96
[2016-10-24] MEDS: Heparin 5000 units/ml inj SUBQ SCH ×2 (08:08→20:58)
[2016-10-24] MEDS: LORazepam 0.5mg tab ORAL SCH ×4 (08:34→22:29)
[2016-10-24 12:00] VITALS: BP 132/88
--- NOTE | 2016-10-24 15:33 | General Progress Note ---
Assessment/Plan Status: doing well Assessment/Plan 1) ETOH withdrawal with seizure 2) Rhabdomyolysis 3) No CHF 4) Chronic alcohol abuse Plan: Continue IV fluid Check CPK Subjective Allergies: Coded Allergies: No Known Allergies (Unverified , 07/08/12) UNABLE TO ASSESS (Unverified , 08/02/13) POOR HISOTRIAN Subjective He is feeling better, no c/p or sob, no more seizure Objective Last 24 Hour Vital Signs Date Time Temp Pulse Resp B/P Pulse Ox O2 Delivery O2 Flow Rate FiO2 10/24/16 12:00 98.1 61 20 132/88 97 Room Air 10/24/16 08:00 99.3 71 20 143/96 97 Room Air 10/24/16 04:00 97.5 68 20 137/85 96 Room Air 10/24/16 00:04 97.4 75 18 138/91 Room Air 10/23/16 20:00 97.2 68 19 140/89 96 Room Air 10/23/16 16:00 97.4 77 18 143/92 97 Room Air Intake and Output 10/23/16 10/24/16 19:00 07:00 Intake Total 3408.5 ml 2161.7 ml Output Total 700 ml Balance 3408.5 ml 1461.7 ml Intake Oral 1160 ml 120 ml IV Total 2248.5 ml 2041.7 ml Output Urine Total 700 ml # Voids 3 1 Laboratory Tests 10/24/16 05:25: White Blood Count 4.6L, Red Blood Count 4.34L, Hemoglobin 14.0L, Hematocrit 41.4L, Mean Corpuscular Volume 95, Mean Corpuscular Hemoglobin 32.1H, Mean Corpuscular Hemoglobin Concent 33.7, Red Cell Distribution Width 11.8, Platelet Count 111L, Mean Platelet Volume 10.3H, Neutrophils (%) (Auto) 68.6, Lymphocytes (%) (Auto) 13.3L, Monocytes (%) (Auto) 14.5H, Eosinophils (%) (Auto ) 3.1H, Basophils (%) (Auto) 0.6, Sodium Level 140, Potassium Level 3.5, Chloride Level 105, Carbon Dioxide Level 25, Anion Gap 10, Blood Urea Nitrogen 6L, Creatinine 0.6L, Estimat Glomerular Filtration Rate > 60, Glucose Level 171H , Calcium Level 7.9L, Phosphorus Level 3.0, Total Bilirubin 1.0, Aspartate Amino Transf (AST/SGOT) 915H, Alanine Aminotransferase (ALT/SGPT) 257H, Alkaline Phosphatase 53, Creatine Kinase MB 47.8H, Total Protein 6.2L, Albumin 3.5, Globulin 2.7, Albumin/Globulin Ratio 1.2 Height (Feet): 5 Height (Inches): 10.00 Weight (Pounds): 200 General Appearance: WD/WN, no apparent distress EENT: PERRL/EOMI Neck: non-tender, normal alignment, normal inspection Cardiovascular: normal rate, regular rhythm, no JVD Respiratory/Chest: lungs clear Abdomen: normal bowel sounds, non tender, soft Extremities: normal range of motion 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
[2016-10-24 15:52] VITALS: BP 152/89
[2016-10-24] MEDS: Folic Acid 1 MG, Magnesium Sulfate 2,000 MG, Multivitamin - 12 Injection 10 ML in NS w/... IV SCH (18:33)
[2016-10-24] MEDS: Thiamine 100mg in D5W 55ml IVPB SCH (18:34)
[2016-10-24 20:01] VITALS: BP 145/91
[2016-10-25] MEDS: D5 1/4NS w/KCl 20mEq 1,000 ML IV SCH ×7 (03:00→23:00)
[2016-10-25 03:52] VITALS: BP 118/67
[2016-10-25] MEDS: Piperacillin/Tazobactam 3.375 GM in NS 110 ML IVPB SCH ×3 (05:31→22:39)
[2016-10-25 07:20] LABS: BASOPHILS % (AUTO) 1.2 % (0.0-2.0); EOSINOPHILS % (AUTO) 4.1 % (0.0-3.0); LYMPHOCYTES % (AUTO) 14.5 % (20.0-45.0); MEAN CORPUSCULAR HEMOGLOBIN 31.7 PG (27.0-31.0); MEAN CORPUSCULAR VOLUME 93 FL (80-99); MEAN PLATELET VOLUME 9.7 FL (6.5-10.1); MONOCYTES % (AUTO) 15.2 % (1.0-10.0); PLATELET COUNT 136 K/UL (150-450); RED CELL DISTRIBUTION WIDTH 11.4 % (11.6-14.8); WHITE BLOOD COUNT 3.7 K/UL (4.8-10.8)
[2016-10-25 07:45] LABS: ALANINE AMINOTRANSFERASE 287 U/L (3-41); ALBUMIN/GLOBULIN RATIO 1.1 (1.0-2.7); ANION GAP 9 (5-15); CALCIUM 8.7 mg/dL (8.6-10.2); CARBON DIOXIDE 26 mEQ/L (20-30); CHLORIDE 101 mEQ/L (98-107); CREATININE 0.6 mg/dL (0.7-1.2); GLOMERULAR FILTRATION RATE > 60 mL/min (>60); HEMOLYSIS 7; POTASSIUM 4.1 mEQ/L (3.4-4.9); SODIUM 136 mEQ/L (135-145); TOTAL PROTEIN 7.9 g/dL (6.6-8.7)
[2016-10-25 07:58] LABS: ASPARTATE AMINO TRANSFERASE 834 U/L (5-40)
[2016-10-25 08:00] VITALS: BP 104/70
[2016-10-25] MEDS: Heparin 5000 units/ml inj SUBQ SCH ×2 (08:25→21:00)
[2016-10-25] MEDS: LORazepam 0.5mg tab ORAL SCH ×4 (08:33→21:55)
[2016-10-25] MEDS ORDERED: Tubing IV Secondary IV ONE (11:57)
[2016-10-25] MEDS ORDERED: NS 275ml ONE (11:57)
[2016-10-25 12:00] VITALS: BP 132/83
--- NOTE | 2016-10-25 14:19 | General Progress Note ---
Assessment/Plan Assessment/Plan 1) ETOH withdrawal with seizure 2) Rhabdomyolysis 3) No CHF 4) Chronic alcohol abuse Plan: Continue IV fluid Subjective Allergies: Coded Allergies: No Known Allergies (Unverified , 07/08/12) UNABLE TO ASSESS (Unverified , 08/02/13) POOR HISOTRIAN Subjective He is feeling better, no c/p or sob, no more seizure, more clear in mind, CPK is still >20K Objective Last 24 Hour Vital Signs Date Time Temp Pulse Resp B/P Pulse Ox O2 Delivery O2 Flow Rate FiO2 10/25/16 12:00 97.5 56 20 132/83 90 Room Air 10/25/16 08:00 97.5 82 20 104/70 100 Room Air 10/25/16 03:52 98.9 65 19 118/67 95 Room Air 10/24/16 20:01 98.2 87 18 145/91 97 Room Air 10/24/16 15:52 98.6 59 20 152/89 96 Room Air Intake and Output 10/24/16 10/25/16 19:00 07:00 Intake Total 600 ml 2401.7 ml Output Total 2525 ml 1400 ml Balance -1925 ml 1001.7 ml Intake Oral 600 ml IV Total 2401.7 ml Output Urine Total 2525 ml 1400 ml Laboratory Tests 10/25/16 06:40: White Blood Count 3.7L, Red Blood Count 4.60L, Hemoglobin 14.6, Hematocrit 42.9 , Mean Corpuscular Volume 93, Mean Corpuscular Hemoglobin 31.7H, Mean Corpuscular Hemoglobin Concent 34.0, Red Cell Distribution Width 11.4L, Platelet Count 136L, Mean Platelet Volume 9.7, Neutrophils (%) (Auto) 65.0, Lymphocytes (%) (Auto) 14.5L, Monocytes (%) (Auto) 15.2H, Eosinophils (%) (Auto ) 4.1H, Basophils (%) (Auto) 1.2, Sodium Level 136, Potassium Level 4.1, Chloride Level 101, Carbon Dioxide Level 26, Anion Gap 9, Blood Urea Nitrogen 7 , Creatinine 0.6L, Estimat Glomerular Filtration Rate > 60, Glucose Level 145H, Calcium Level 8.7, Total Bilirubin 0.9, Aspartate Amino Transf (AST/SGOT) 834H, Alanine Aminotransferase (ALT/SGPT) 287H, Alkaline Phosphatase 64, Total Creatine Kinase > 75413R, Total Protein 7.9, Albumin 4.2, Globulin 3.7, Albumin/ Globulin Ratio 1.1 Height (Feet): 5 Height (Inches): 10.00 Weight (Pounds): 200 General Appearance: WD/WN, alert EENT: PERRL/EOMI Cardiovascular: normal peripheral pulses, normal rate, regular rhythm Respiratory/Chest: chest wall non-tender, lungs clear, normal breath sounds Abdomen: normal bowel sounds, non tender 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
[2016-10-25 16:00] VITALS: BP 132/88
[2016-10-25] MEDS: Folic Acid 1 MG, Magnesium Sulfate 2,000 MG, Multivitamin - 12 Injection 10 ML in NS w/... IV SCH (19:25)
[2016-10-25] MEDS: Lactulose 20gm/30ml UDC ORAL SCH ×2 (19:25→20:34)
[2016-10-25] MEDS: Thiamine 100mg in D5W 55ml IVPB SCH (19:25)
[2016-10-25 20:00] VITALS: BP 142/92
[2016-10-26] VITALS: BP 146/98
[2016-10-26] MEDS: D5 1/4NS w/KCl 20mEq 1,000 ML IV SCH ×6 (03:00→23:00)
[2016-10-26 04:00] VITALS: BP 119/75
[2016-10-26] MEDS: Piperacillin/Tazobactam 3.375 GM in NS 110 ML IVPB SCH ×3 (06:10→21:10)
[2016-10-26 07:51] LABS: EOSINOPHILS % (AUTO) 4.5 % (0.0-3.0); LYMPHOCYTES % (AUTO) 15.5 % (20.0-45.0); MEAN CORPUSCULAR HEMOGLOBIN 31.8 PG (27.0-31.0); MEAN CORPUSCULAR HGB CONC 33.6 G/DL (32.0-36.0); MEAN CORPUSCULAR VOLUME 95 FL (80-99); MEAN PLATELET VOLUME 9.9 FL (6.5-10.1); MONOCYTES % (AUTO) 16.9 % (1.0-10.0); NEUTROPHILS % (AUTO) 62.2 % (45.0-75.0); PLATELET COUNT 162 K/UL (150-450); RED BLOOD COUNT 4.69 M/UL (4.70-6.10); RED CELL DISTRIBUTION WIDTH 11.6 % (11.6-14.8); WHITE BLOOD COUNT 4.4 K/UL (4.8-10.8)
[2016-10-26 08:00] VITALS: BP 122/76
[2016-10-26 08:53] LABS: ALANINE AMINOTRANSFERASE 281 U/L (3-41); ALBUMIN/GLOBULIN RATIO 1.3 (1.0-2.7); ASPARTATE AMINO TRANSFERASE 557 U/L (5-40); CALCIUM 8.8 mg/dL (8.6-10.2); CARBON DIOXIDE 24 mEQ/L (20-30); CREATININE 0.7 mg/dL (0.7-1.2); GLOMERULAR FILTRATION RATE > 60 mL/min (>60); HEMOLYSIS 6; TOTAL PROTEIN 6.5 g/dL (6.6-8.7)
[2016-10-26] MEDS: LORazepam 0.5mg tab ORAL SCH ×4 (08:56→21:10)
[2016-10-26] MEDS: Heparin 5000 units/ml inj SUBQ SCH ×2 (08:56→21:00)
[2016-10-26 09:17] LABS: ANION GAP 12 (5-15); CHLORIDE 100 mEQ/L (98-107); POTASSIUM 4.2 mEQ/L (3.4-4.9); SODIUM 136 mEQ/L (135-145)
--- NOTE | 2016-10-26 12:01 | Diagnostic Imaging Report ---
Indication: Left shoulder pain Technique: XRAY SHOULDER MIN 3V LEFT Comparison: None Findings: There is no acute fracture or dislocation. There is deformity of the left lateral clavicle. Acromioclavicular degenerative changes are seen. The chronic appearing left-sided rib fracture deformities are suspected. Impression: No acute osseous abnormality. Chronic deformity of the left lateral clavicle and left-sided ribs probably related to old injury. Clinical correlation recommended.
[2016-10-26 16:00] VITALS: BP 124/77
--- NOTE | 2016-10-26 16:06 | General Progress Note ---
Assessment/Plan Assessment/Plan 1) ETOH withdrawal with seizure 2) Rhabdomyolysis 3) No CHF 4) Chronic alcohol abuse Plan: Continue IV fluid D/c planning Subjective Allergies: Coded Allergies: No Known Allergies (Unverified , 07/08/12) UNABLE TO ASSESS (Unverified , 08/02/13) POOR HISOTRIAN Subjective He is feeling better, no c/p or sob, no more seizure, more [place], [place] [address] Objective Last 24 Hour Vital Signs Date Time Temp Pulse Resp B/P Pulse Ox O2 Delivery O2 Flow Rate FiO2 10/26/16 08:00 98.1 64 18 122/76 96 Room Air 10/26/16 04:00 96.6 61 18 119/75 95 Room Air 10/26/16 00:00 98.1 65 20 146/98 96 Room Air 10/25/16 21:35 98.2 10/25/16 20:00 100.0 56 20 142/92 97 Room Air Intake and Output 10/25/16 10/26/16 19:00 07:00 Intake Total 1240 ml 2422.0 ml Output Total 1600 ml 600 ml Balance -360 ml 1822.0 ml Intake Oral 240 ml IV Total 1000 ml 2422.0 ml Output Urine Total 1600 ml 600 ml # Voids 3 # Bowel Movements 3 Laboratory Tests 10/26/16 06:35: White Blood Count 4.4L, Red Blood Count 4.69L, Hemoglobin 14.9, Hematocrit 44.3 , Mean Corpuscular Volume 95, Mean Corpuscular Hemoglobin 31.8H, Mean Corpuscular Hemoglobin Concent 33.6, Red Cell Distribution Width 11.6, Platelet Count 162, Mean Platelet Volume 9.9, Neutrophils (%) (Auto) 62.2, Lymphocytes (% ) (Auto) 15.5L, Monocytes (%) (Auto) 16.9H, Eosinophils (%) (Auto) 4.5H, Basophils (%) (Auto) 1.0, Sodium Level 136, Potassium Level 4.2, Chloride Level 100, Carbon Dioxide Level 24, Anion Gap 12, Blood Urea Nitrogen 7, Creatinine 0.7, Estimat Glomerular Filtration Rate > 60, Glucose Level 138H, Calcium Level 8.8, Total Bilirubin 0.6, Aspartate Amino Transf (AST/SGOT) 557H, Alanine Aminotransferase (ALT/SGPT) 281H, Alkaline Phosphatase 64, Total Creatine Kinase 42250I, Total Protein 6.5L, Albumin 3.7, Globulin 2.8, Albumin/Globulin Ratio 1.3 Height (Feet): 5 Height (Inches): 10.00 Weight (Pounds): 200 General Appearance: WD/WN, no apparent distress EENT: PERRL/EOMI Neck: non-tender, normal alignment, supple Cardiovascular: normal rate, regular rhythm, no JVD Respiratory/Chest: chest wall non-tender, lungs clear Abdomen: non tender, soft 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
[2016-10-26] MEDS ORDERED: Tubing IV Secondary IV ONE (17:57)
[2016-10-26] MEDS: Thiamine 100mg in D5W 55ml IVPB SCH (18:50)
[2016-10-26] MEDS: Folic Acid 1 MG, Magnesium Sulfate 2,000 MG, Multivitamin - 12 Injection 10 ML in NS w/... IV SCH (18:51)
[2016-10-26 20:00] VITALS: BP 136/88
[2016-10-27] VITALS: BP 111/74
[2016-10-27] MEDS: D5 1/4NS w/KCl 20mEq 1,000 ML IV SCH ×6 (02:50→22:10)
[2016-10-27 04:00] VITALS: BP 129/87
[2016-10-27] MEDS: Piperacillin/Tazobactam 3.375 GM in NS 110 ML IVPB SCH ×3 (05:45→22:10)
[2016-10-27 08:07] VITALS: BP 121/65
[2016-10-27 08:16] LABS: ANION GAP 12 (5-15); CALCIUM 8.8 mg/dL (8.6-10.2); CARBON DIOXIDE 25 mEQ/L (20-30); CHLORIDE 101 mEQ/L (98-107); CREATININE 0.6 mg/dL (0.7-1.2); GLOMERULAR FILTRATION RATE > 60 mL/min (>60); HEMOLYSIS 6; POTASSIUM 3.9 mEQ/L (3.4-4.9); SODIUM 138 mEQ/L (135-145)
[2016-10-27] MEDS: LORazepam 0.5mg tab ORAL SCH ×4 (08:45→20:53)
[2016-10-27] MEDS: Heparin 5000 units/ml inj SUBQ SCH ×2 (08:46→20:55)
[2016-10-27 12:15] VITALS: BP 102/70
--- NOTE | 2016-10-27 14:27 | General Progress Note ---
Assessment/Plan Assessment/Plan 1) ETOH withdrawal with seizure 2) Rhabdomyolysis 3) No CHF 4) Chronic alcohol abuse Plan: Awaiting disposition Continue IV fluid Subjective Allergies: Coded Allergies: No Known Allergies (Unverified , 07/08/12) UNABLE TO ASSESS (Unverified , 08/02/13) POOR HISOTRIAN Subjective He is feeling better, no c/p or sob, no more seizure, more clear in mind, CPK [place] down to 5300 Objective Last 24 Hour Vital Signs Date Time Temp Pulse Resp B/P Pulse Ox O2 Delivery O2 Flow Rate FiO2 10/27/16 12:15 97.6 76 20 102/70 95 Room Air 10/27/16 08:07 98.0 69 21 121/65 97 Room Air 10/27/16 04:00 97.9 70 20 129/87 94 Room Air 10/27/16 00:00 97.5 62 20 111/74 93 Room Air 10/26/16 20:00 98.2 61 20 136/88 94 Room Air 10/26/16 16:00 97.5 63 17 124/77 96 Room Air Intake and Output 10/26/16 10/27/16 19:00 07:00 Intake Total 3280.0 ml 2334.0 ml Balance 3280.0 ml 2334.0 ml Intake Oral 720 ml IV Total 2560.0 ml 2334.0 ml # Voids 7 5 # Bowel Movements 3 Laboratory Tests 10/27/16 05:25: Sodium Level 138, Potassium Level 3.9, Chloride Level 101, Carbon Dioxide Level 25, Anion Gap 12, Blood Urea Nitrogen 8, Creatinine 0.6L, Estimat Glomerular Filtration Rate > 60, Glucose Level 125H, Calcium Level 8.8, Total Creatine Kinase 5309H Height (Feet): 5 Height (Inches): 10.00 Weight (Pounds): 200 General Appearance: WD/WN, no apparent distress EENT: PERRL/EOMI Neck: non-tender, normal alignment, supple Cardiovascular: normal peripheral pulses, normal rate, no JVD Respiratory/Chest: chest wall non-tender, lungs clear Abdomen: normal bowel sounds, non tender Neurologic: no motor/sensory deficits CONRAD DURAN Oct 27, 2016 14:27
[2016-10-27 16:15] VITALS: BP 135/94
[2016-10-27] MEDS: Thiamine 100mg in D5W 55ml IVPB SCH (17:30)
[2016-10-27] MEDS: Folic Acid 1 MG, Magnesium Sulfate 2,000 MG, Multivitamin - 12 Injection 10 ML in NS w/... IV SCH (17:30)
[2016-10-27 20:00] VITALS: BP 109/70
[2016-10-28] VITALS: BP 115/73
[2016-10-28 04:00] VITALS: BP 116/89
[2016-10-28] MEDS: D5 1/4NS w/KCl 20mEq 1,000 ML IV SCH ×3 (04:02→11:30)
[2016-10-28] MEDS: Piperacillin/Tazobactam 3.375 GM in NS 110 ML IVPB SCH ×2 (06:11→13:43)
[2016-10-28 08:00] VITALS: BP 94/55
[2016-10-28] MEDS: LORazepam 0.5mg tab ORAL SCH ×2 (08:39→13:43)
[2016-10-28] MEDS: Heparin 5000 units/ml inj SUBQ SCH (08:41)
[2016-10-28 12:00] VITALS: BP 116/74
--- NOTE | 2016-10-28 14:12 | General Progress Note ---
Assessment/Plan Assessment/Plan 1) ETOH withdrawal with seizure 2) Rhabdomyolysis 3) No CHF 4) Chronic alcohol abuse Plan: Will discharge today #[id number] Subjective Allergies: Coded Allergies: No Known Allergies (Unverified , 07/08/12) UNABLE TO ASSESS (Unverified , 08/02/13) POOR HISOTRIAN Subjective He is feeling better, no c/p or sob, no more seizure, Objective Last 24 Hour Vital Signs Date Time Temp Pulse Resp B/P Pulse Ox O2 Delivery O2 Flow Rate FiO2 10/28/16 12:00 98.1 61 16 116/74 98 Room Air 10/28/16 08:00 95.0 67 16 94/55 95 Room Air 10/28/16 04:00 97.5 77 20 116/89 97 Room Air 10/28/16 00:00 97.5 72 20 115/73 96 Room Air 10/27/16 20:00 97.5 61 20 109/70 96 Room Air 10/27/16 16:15 97.4 68 21 135/94 97 Room Air Intake and Output 10/27/16 10/28/16 19:00 07:00 Intake Total 2926.0 ml 2580.0 ml Output Total 1720 ml 3500 ml Balance 1206.0 ml -920.0 ml Intake Oral 1560 ml 120 ml IV Total 1366.0 ml 2460.0 ml Output Urine Total 1720 ml 3500 ml # Voids 5 Height (Feet): 5 Height (Inches): 10.00 Weight (Pounds): 200 General Appearance: WD/WN, no apparent distress EENT: PERRL/EOMI, pharynx normal Neck: supple Cardiovascular: normal peripheral pulses, normal rate, regular rhythm Respiratory/Chest: chest wall non-tender, lungs clear Abdomen: normal bowel sounds, non tender, soft 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
[2016-10-28] MEDS ORDERED: Tubing IV Secondary IV ONE (15:29)
[2016-10-28] MEDS ORDERED: NS 275ml ONE (15:29)
--- NOTE | 2016-10-29 11:45 | Discharge Summary ---
DATE OF ADMISSION: 10/20/2016 DATE OF DISCHARGE: 10/28/2016 DIAGNOSES OF DISCHARGE: 1. Evidence of seizure, most likely due to alcohol withdrawal. 2. Severe rhabdomyolysis. 3. Hallucination and delusions due to the alcohol withdrawal. HISTORY AND PHYSICAL AND HOSPITAL COURSE: For details, please refer to the History and Physical dictated in the chart. This is a very pleasant 46-year-old male, does not speak Singaporean, who apparently has been brought to the emergency room of [facility] and has been subsequently admitted under the care of Dr. Vaca. Apparently, he has been very delusional and hallucination and has had some withdrawal seizures from alcohol apparently, elevated liver enzymes, and alcoholic hepatitis, subsequently, was admitted to the floor, was also found to have a CPK level more than 20,000, was started on IV fluids and was put on CIWA scale and during the course of hospitalization, eventually, he became more lucid with the help of IV fluids. He does not have any signs of acute kidney injuries. Serum creatinine is in the range of 0.6 mg/dL and his CPK eventually came down to about 5300 on 10/27/2016. It seems that he might have been homeless, so over the weekend we could not discharge him until the social workers today, on 10/28/2016, they gave the green light to go home. 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 Pete Quesada M.D. DR: Kehinde JOB#: [id number] CC:
== END 2016-10-28 15:30 | disposition home or self-care (01) | DRG 775 ==
LOC: EDBD 08:34 → EMR 08:40 → 2E 09:30 → EDBEDREQ 09:56 → 4E 12:54 → 3E 16:49 → 4E 10-22 08:14
DX: F10.239 Alcohol dependence with withdrawal, unspecified (principal); M62.82 Rhabdomyolysis; R56.9 Unspecified convulsions; R50.9 Fever, unspecified; K70.10 Alcoholic hepatitis without ascites
CPT/HCPCS: 36415; 70450; 71010; 80048; 80053; 80164; 80184; 80185; 80300; 80329; 81001; 82140; 82248; 82550; 82553; 82962; 83735; 84100; 85007; 85025; 85610; 87040; 87086; 93005

== ENCOUNTER 2016-12-26 14:06 | Emergency (ER) | payer MEDICAID ==
[~2016-12-26] VITALS: Ht 177.8 cm; Wt 81.6 kg
[2016-12-26 14:50] VITALS: BP 149/76
[2016-12-26 14:51] LABS: MEAN CORPUSCULAR HEMOGLOBIN 31.4 PG (27.0-31.0); MEAN CORPUSCULAR HGB CONC 32.7 G/DL (32.0-36.0); MEAN CORPUSCULAR VOLUME 96 FL (80-99); MEAN PLATELET VOLUME 7.7 FL (6.5-10.1); PLATELET COUNT 106 K/UL (150-450); WHITE BLOOD COUNT 2.9 K/UL (4.8-10.8)
--- NOTE | 2016-12-26 15:06 | Emergency Room Report ---
History of Present Illness General Chief Complaint: General Complaint Source: Patient, Medical Record Present Illness HPI 46YOM BIBEMS after [facility] saw patient lying on street Last drink was 12 hours ago - 3 beers Homeless, chronic drinker Admitted here previously for ?withdrawal seizures HPI limited as patient seems more interested in sleeping at this time Denies pain Denies chest pain, SOB, abd pain, nausea/vomiting, fever/chills Denies drug use Allergies: Coded Allergies: No Known Allergies (Unverified , 07/08/12) UNABLE TO ASSESS (Unverified , 08/02/13) POOR HISOTRIAN Patient History Past Medical History: none Past Surgical History: none Pertinent Family History: none Social History: Reports: alcohol use Immunizations: UTD Reviewed Nursing Documentation: PMH: Agreed, PSxH: Agreed Nursing Documentation-PMH Past Medical History: No History, Except For Hx Cardiac Problems: Yes Hx Hypertension: Yes Hx Cancer: No Hx Gastrointestinal Problems: Yes - etoh abuse Hx Neurological Problems: Yes - ETOH abuse Hx Seizures: Yes Review of Systems All Other Systems: negative except mentioned in HPI Physical Exam Vital Signs Date Time Temp Pulse Resp B/P (MAP) Pulse Ox O2 Delivery O2 Flow Rate FiO2 12/26/16 14:03 99.1 82 16 160/98 97 Room Air Sp02 EP Interpretation: reviewed, normal General Appearance: normal inspection, well appearing, no apparent distress, alert, GCS 15, non-toxic Head: atraumatic ENT: normal ENT inspection, hearing grossly normal, normal voice, other - No tongue fasciculations Neck: normal inspection, full range of motion, supple, no bony tend Respiratory: normal inspection, lungs clear, normal breath sounds, no respiratory distress, no retraction, no wheezing Cardiovascular #1: regular rate, rhythm, no edema Gastrointestinal: normal inspection, normal bowel sounds, non tender, soft, no guarding, no hernia Genitourinary: no CVA tenderness Musculoskeletal: normal inspection, back normal, normal range of motion, April' s Sign negative, other - Mild upper extremity tremors when asked. Otherwise no tremors while sleeping in stretcher Neurologic: normal inspection, alert, oriented x3, responsive, debt management counselor III-XII nml as tested, speech normal Psychiatric: normal inspection, judgement/insight normal, mood/affect normal Skin: normal inspection, normal color, no rash Medical Decision Making Diagnostic Impression: Primary Impression: Alcohol abuse ER Course VSS. Afebrile No obvious signs of withdrawal No seizures today - witnessed by EMS nor while in ED Labs: H&h stable/ No leuks. CK normal. ETOH level 0. Ambulatory with steady gait No observed seizures in ED DC Last Vital Signs Date Time Temp Pulse Resp B/P (MAP) Pulse Ox O2 Delivery O2 Flow Rate FiO2 12/26/16 14:03 99.1 82 16 160/98 97 Room Air Status: improved Disposition: HOME, SELF-CARE Referrals: NOT CHOSEN IPA/,REFERRING (PCP) RADHA MCCONNELL M.D. Dec 26, 2016 15:06
[2016-12-26 15:15] LABS: ALANINE AMINOTRANSFERASE 64 U/L (12-78); ALBUMIN/GLOBULIN RATIO 1.1 (1.0-2.7); ALCOHOL < 3 mg/dL; ANION GAP 16 mmol/L (5-15); ASPARTATE AMINO TRANSFERASE 147 U/L (15-37); CALCIUM 9.2 MG/DL (8.5-10.1); CARBON DIOXIDE 23 MMOL/L (21-32); CHLORIDE 102 MMOL/L (98-107); CKMB 1.9 NG/ML (0.0-3.6); CREATININE 0.9 MG/DL (0.55-1.30); GLOMERULAR FILTRATION RATE > 60 mL/min (>60); POTASSIUM 3.4 MMOL/L (3.5-5.1); SODIUM 141 MMOL/L (136-145); TOTAL PROTEIN 7.5 G/DL (6.4-8.2)
[2016-12-26 15:30] VITALS: BP 142/72
[2016-12-26] MEDS ORDERED: chlordiazePOXIDE 25mg Cap ORAL ONE (15:30)
[2016-12-26 15:32] LABS: BAND NEUTROPHILS % (MANUAL) 4 % (0-8); BASOPHILS % (MANUAL) 1 % (0-2); EOSINOPHILS % (MANUAL) 0 % (0-3); LYMPHOCYTES % (MANUAL) 18 % (20-45); NEUTROPHILS % (MANUAL) 71 % (45-75); PLATELET ESTIMATE DECREASED; PLATELET MORPHOLOGY NORMAL; TOTAL CELLS COUNTED 100
== END 2016-12-26 15:37 | disposition home or self-care (01) ==
LOC: EDBD 14:06 → EMR 14:17
DX: F10.10 Alcohol abuse, uncomplicated (principal); I10 Essential (primary) hypertension
CPT/HCPCS: 36415; 80053; 80329; 82550; 82553; 85007; 85025; 96360; 99284

== ENCOUNTER → 2017-04-21 | Emergency (ER) | payer MEDICAID | END | disposition left against medical advice (07) | LOC: EMR 14:00 | DX: R42 Dizziness and giddiness (principal); Z53.21 Procedure and treatment not carried out due to patient leaving prior to being seen by health care provider | CPT/HCPCS: 99282 ==

== ENCOUNTER 2018-06-13 13:13 | Emergency (ER) | payer SELFPAY ==
[~2018-06-13] VITALS: Ht 162.6 cm; Wt 75.3 kg
--- NOTE | 2018-06-13 13:28 | NUR ---
ED Nurse Note: PT WALKED IN TO ER TODAY FROM HOME. AOX3 - PT NOT ORIENTED TO TIME. PT HERE TODAY FOR "CHECK BLOOD." PT STATES HE DOES NOT HAVE ANY SYMPTOMS OR PAIN. PT JUST WANTS TO GET HIS BLOOD CHECKED. PT SMELLS OF ALCOHOL. PT ASKED IF HE DRANK TODAY. PT STATES HE HAD TWO BEERS.
[2018-06-13 13:30] VITALS: BP 122/86
--- NOTE | 2018-06-13 13:46 | NUR ---
ED Nurse Note: PT SITTING PEACEFULLY IN BED IN NAD. AOX3. DISCHARGE PAPERWORK EXPLAINED TO PT. PT VERBALIZES UNDERSTANDING AND ALL QUESTIONS ANSWERED. DISCHARGE PAPERWORK GIVEN TO PT AND ID WRISTBAND REMOVED. PT WALKED OUT OF ER WITH STEADY GAIT AND ALL BELONGINGS.
[2018-06-13 13:47] VITALS: BP 118/82
--- NOTE | 2018-06-13 13:53 | Emergency Room Report ---
History of Present Illness General Chief Complaint: General Complaint Source: Patient, Medical Record Present Illness HPI 48-year-old male patient presents the ER requesting labs. Patient states he has no acute complaints at this time. Denies fever, chest pain, shortness of breath no abdominal pain. Denies dysuria hematuria. Reports that he has not seen a doctor and would like to have basic labs done. Denies other aggravating or relieving factors. Denies thoughts of hurting herself or others. Patient previously has been seen multiple times in the past. States is not followed up with his primary care provider. Allergies: Coded Allergies: No Known Allergies (Unverified , 07/08/12) Patient History Past Medical History: see triage record Reviewed Nursing Documentation: PMH: Agreed; PSxH: Agreed Nursing Documentation-PMH Hx Cardiac Problems: Yes Hx Hypertension: Yes Hx Cancer: No Hx Gastrointestinal Problems: Yes - etoh abuse Hx Neurological Problems: Yes - ETOH abuse Hx Seizures: Yes Review of Systems All Other Systems: negative except mentioned in HPI Physical Exam Vital Signs Date Time Temp Pulse Resp B/P (MAP) Pulse Ox O2 Delivery O2 Flow Rate FiO2 06/13/18 13:20 97.7 95 18 120/83 96 Room Air Sp02 EP Interpretation: reviewed, normal General Appearance: well appearing, no apparent distress, alert, GCS 15, non- toxic Head: normocephalic, atraumatic Eyes: bilateral eye normal inspection, bilateral eye PERRL ENT: hearing grossly normal, normal pharynx, no angioedema, normal voice, uvula midline, moist mucus membranes Neck: full range of motion Respiratory: lungs clear, normal breath sounds, no rhonchi, no respiratory distress, no accessory muscle use, no wheezing, speaking full sentences Cardiovascular #1: regular rate, rhythm, no edema Gastrointestinal: non tender, soft, no mass, non-distended, no guarding, no rebound Genitourinary: no CVA tenderness Musculoskeletal: back normal, digits/nails normal, gait/station normal, normal range of motion, non-tender Neurologic: alert, oriented x3, responsive, motor strength/tone normal, sensory intact Psychiatric: mood/affect normal Skin: no rash Lymphatic: no adenopathy Medical Decision Making PA Attestation Dr. Ernandez is my supervising Physician whom patient management has been discussed with. Diagnostic Impression: Primary Impression: Encounter for well adult exam without abnormal findings ER Course Pt. presents to the ED c/o requesting lab work, no acute complaints. Ddx considered but are not limited to general exam, laboratory workup , alcohol intoxication Vital signs: are WNL, pt. is afebrile ER COURSE: Physical exam benign. Advised to follow-up with primary care provider to discuss lab results. ER precautions given. Provided with contact list for free low-cost healthcare clinics. Patient ambulatory out of the ER with no acute complaints. DISCHARGE: At this time pt is stable for d/c to home. Patient is resting comfortably, in no acute distress, nontoxic appearing, talking without difficulty. Patient to take medications as instructed Will provide with patient care instructions and any necessary prescriptions. Care plan and follow-up instructions provided. Patient instructed to follow-up with primary care provider in 3 - 5 days. Patient questions asked and answered. Patient reports understanding and agreement to treatment plan. ER precautions given. Patient instructed to return to ER immediately for any new or worsening of symptoms including but not limited to increasing SOB, persistent fever, chest pain, intractable vomiting. - Please note that this Emergency Department Report was dictated using Gaming Live TVdata scientist technology software, occasionally this can lead to erroneous entry secondary to interpretation by the dictation equipment. Last Vital Signs Date Time Temp Pulse Resp B/P (MAP) Pulse Ox O2 Delivery O2 Flow Rate FiO2 06/13/18 13:47 98.2 88 17 118/82 99 Room Air Disposition: HOME, SELF-CARE Condition: Stable Additional Instructions: Followup with primary care provider in 3 -5 days. Discuss laboratory exam at that time. ER does not perform basic labs, needs to be performed by primary care provider. Follow-up with free and low-cost healthcare providers on list provided. Patient questions asked and answered. ER precautions given, patient instructed to return to ER immediately for any new or worsening of symptoms. Georges Tran Jun 13, 2018 13:53
== END 2018-06-13 13:47 | disposition home or self-care (01) ==
LOC: EMR 13:40
DX: Z00.00 Encounter for general adult medical examination without abnormal findings (principal); I10 Essential (primary) hypertension; F10.10 Alcohol abuse, uncomplicated
CPT/HCPCS: 99281

== ENCOUNTER 2019-07-27 08:22 | Emergency (ER) | payer SELFPAY ==
[~2019-07-27] VITALS: Ht 177.8 cm; Wt 74.8 kg
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
[2019-07-27] MEDS ORDERED: levETIRAcetam 500 MG in D5W 110 ML IV ONE (08:45)
[2019-07-27] MEDS ORDERED: LORazepam Inj 2mg/ml 1ml IV ONE (08:45)
--- NOTE | 2019-07-27 08:47 | NUR ---
ED Nurse Note: Pt in radiology
[2019-07-27 08:51] VITALS: BP 147/84
[2019-07-27 09:03] LABS: ANION GAP 23 mmol/L (5-15); BASOPHILS % (AUTO) 1.1 % (0.0-2.0); BLOOD UREA NITROGEN 7 mg/dL (7-18); CALCIUM 8.8 MG/DL (8.5-10.1); CARBON DIOXIDE 17 MMOL/L (21-32); CHLORIDE 98 MMOL/L (98-107); CREATININE 1.2 MG/DL (0.55-1.30); EOSINOPHILS % (AUTO) 0.2 % (0.0-3.0); HEMATOCRIT 42.4 % (42.0-52.0); HEMOGLOBIN 14.4 G/DL (14.2-18.0); LYMPHOCYTES % (AUTO) 19.9 % (20.0-45.0); MEAN CORPUSCULAR VOLUME 90 FL (80-99); MONOCYTES % (AUTO) 5.9 % (1.0-10.0); NEUTROPHILS % (AUTO) 72.9 % (45.0-75.0); PLATELET COUNT 119 K/UL (150-450); POTASSIUM 3.5 MMOL/L (3.5-5.1); RED BLOOD COUNT 4.69 M/UL (4.70-6.10); RED CELL DISTRIBUTION WIDTH 11.5 % (11.6-14.8); SODIUM 138 MMOL/L (136-145)
[2019-07-27 09:07] LABS: ALANINE AMINOTRANSFERASE 48 U/L (12-78); ALBUMIN 4.2 G/DL (3.4-5.0); ALKALINE PHOSPHATASE 117 U/L (46-116); ASPARTATE AMINO TRANSFERASE 85 U/L (15-37); BILIRUBIN,TOTAL 0.6 MG/DL (0.2-1.0)
--- NOTE | 2019-07-27 09:38 | Diagnostic Imaging Report ---
EXAM: CT CT Head no Contrast INDICATION: Seizure. TECHNIQUE: Axial images of the brain were obtained with subsequent sagittal and coronal reformats. All CT scans at this facility are performed using dose modulation techniques as appropriate to a performed exam including the following: automated exposure control with adjustment of the mA and/or kV according to patient size. COMPARISON STUDY: None. RADIATION DOSE: CTDIvol: 53.4 mGy DLP: 1098.9 mGy-cm Dose information generated by the CT scanner is available in PACS. FINDINGS: There is age related senescent changes with ventricular and sulcal prominence. White matter micro-ischemic changes noted. There is no acute large territory cortical infarct, hemorrhage, mass effect or shift. Ventricles and cisterns as well as brainstem and posterior fossa appear unremarkable. The sellar region is normal. Minimal mucosal thickening noted in the ethmoid sinuses. IMPRESSION: AGE RELATED SENESCENT CHANGES. NO ACUTE INTRACRANIAL ABNORMALITY.
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
[2019-07-27 11:00] VITALS: BP 144/81
[2019-07-27 13:09] VITALS: BP 146/84
[2019-07-27] MEDS ORDERED: KEPPRA500 M4 ORAL (14:12)
[2019-07-27] MEDS ORDERED: LIBRIUM10 MG ORAL (14:12)
--- NOTE | 2019-07-27 14:25 | NUR ---
ED Nurse Note: Pt signed out for discharge, but c/o of "trembling." Let ED MD know and he ordered librium. Pt laying in bed resting
[2019-07-27] MEDS ORDERED: chlordiazePOXIDE 25mg Cap ORAL ONE (14:30)
[2019-07-27 14:57] VITALS: BP 141/88
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
== END 2019-07-27 14:57 | disposition home or self-care (01) ==
LOC: EDBD 08:22 → EMR 08:41
DX: G40.909 Epilepsy, unspecified, not intractable, without status epilepticus (principal); F10.239 Alcohol dependence with withdrawal, unspecified; I10 Essential (primary) hypertension; R00.0 Tachycardia, unspecified
CPT/HCPCS: 36415; 70450; 80053; 82962; 85025; 93005; 96361; 96374; 96375; 99284; G0480; J1953; J7030

== ENCOUNTER 2019-08-19 17:20 | Emergency (ER) | payer SELFPAY ==
[~2019-08-19] VITALS: Ht 167.6 cm; Wt 63.5 kg
[~2019-08-19 17:20] MED LIST changes: +KEPPRA500 M4 ORAL; +LIBRIUM10 MG ORAL
[2019-08-19 17:24] VITALS: BP 130/84
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
[2019-08-19] MEDS ORDERED: IBUPROFEN600 M1 ORAL (18:06)
[2019-08-19 18:12] VITALS: BP 118/79
--- NOTE | 2019-08-20 09:47 | Diagnostic Imaging Report ---
Indication: Chest pain Technique: One view of the chest Comparison: 07/25/2018 Findings: The heart is borderline enlarged. The lungs and pleural spaces are clear. Old healed fracture deformity of the right clavicle is again demonstrated. Impression: Borderline cardiomegaly. No definite acute process
== END 2019-08-19 18:12 | disposition home or self-care (01) ==
LOC: EDBD 17:20 → EMR 17:45
DX: S20.219A Contusion of unspecified front wall of thorax, initial encounter (principal); I44.0 Atrioventricular block, first degree; I10 Essential (primary) hypertension; G40.909 Epilepsy, unspecified, not intractable, without status epilepticus; F10.10 Alcohol abuse, uncomplicated; W22.8XXA Striking against or struck by other objects, initial encounter; Y93.9 Activity, unspecified; Y92.9 Unspecified place or not applicable; Y90.9 Presence of alcohol in blood, level not specified
CPT/HCPCS: 71045; 93005; 99283